=== PATIENT | male | born 1990 | race Two or more races ===

== ENCOUNTER 2023-10-12 18:06 | Emergency (ER) | payer SELFPAY ==
[2023-10-12 19:16] LABS: SARS-CoV-2 NAA Rapid Test Not Detected (NotDetected)
== END 2023-10-12 19:30 | disposition home or self-care (01) ==
LOC: CSHERS 18:06
DX: R05.9 Cough, unspecified (principal); J02.9 Acute pharyngitis, unspecified; R51.9 Headache, unspecified; M79.7 Fibromyalgia
CPT/HCPCS: 99284